=== PATIENT | female | born 2005 | race African-American/Black ===

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

== ENCOUNTER 2023-11-13 12:57 | Emergency (ER) | payer SELFPAY ==
[2023-11-13 14:22] LABS: Pregnancy Test - Urine (BHCG) Negative (Negative); Pregu Control Background? CLEAR/WHITE (CLR/WHITE); Pregu Control Bar Appear? YES (CONTROL BAR); Specific Gravity 1.022 (1.002-1.036)
[2023-11-13 14:28] LABS: Bilirubin Negative (Negative); Blood, Urine 2+ (Negative); CAUTI Indications for Culture Acute Hematuria; Clarity Clear (Clear); Glucose, Urine (Dipstick) Normal (Negative); Ketone, Urine Negative (Negative); Leukocyte 500 Leu/uL (Negative); Nitrite Negative (Negative); Protein, Urine (Dipstick) 100 mg/dL (Neg-Trace); Specific Gravity, Urine 1.022 (1.002-1.036); Urobilinogen Normal mg/dL (Less than 2)
[2023-11-13 14:51] LABS: Bacteria/HPF 1+ HPF (None Seen)
[2023-11-13 14:55] LABS: Urine Culture Reflex Yes Yes
== END 2023-11-13 16:42 | disposition home or self-care (01) ==
LOC: ERS 12:57
DX: N30.00 Acute cystitis without hematuria (principal); N76.0 Acute vaginitis
CPT/HCPCS: 81001; 81025; 87077; 87086; 87186; 87480; 87510; 87660; 99283